=== PATIENT | female | born 1955 | race Caucasian/White ===

== ENCOUNTER 2022-04-10 06:29 | Day surgery (SDC) | payer MEDICARE ==
[2022-04-09 11:28] VITALS: BMI 23.0
[~2022-04-10 06:29] MED LIST: EPINEPHrine 0.3 MG in Ophthalmic Irrigation Solution 500 ML IRR SCH
[2022-04-10] MEDS ORDERED: Cyclopentolate 1% Opth Drop 2 ML BOT ONE (06:44)
[2022-04-10] MEDS ORDERED: Phenylephrine 2.5% Ophth Soln 5 ML BOT ONE (06:44)
[2022-04-10] MEDS ORDERED: Midazolam HCl 2 mg/2 ml Vial ONE (07:10)
[2022-04-10] MEDS ORDERED: Fentanyl 100 MCG/2 ML VIAL ONE (07:10)
[2022-04-10] MEDS ORDERED: Maxitrol 0.1% Opth Oint 3.5 GM TUBE ONE (08:41)
[2022-04-10] MEDS ORDERED: PROPOFOL 200 MG/20 ML VIAL ONE (08:41)
[2022-04-10] MEDS ORDERED: Bupivacaine 0.75% 10 ML VIAL ONE (08:41)
[2022-04-10] MEDS ORDERED: Lidocaine 4% PF 5 ML AMP ONE (08:41)
[2022-04-10] MEDS ORDERED: Triamcinolone 40 MG/ML VIAL ONE (08:41)
== END 2022-04-10 09:50 | disposition home or self-care (01) ==
LOC: SDC 06:29
PROVIDERS: ATTEND Ophthalmology Retina Specialist
PROC: 08T43ZZ Resection of Right Vitreous, Percutaneous Approach (ICD-10-PCS; principal; 2022-04-10)
DX: H43.11 Vitreous hemorrhage, right eye (principal); I10 Essential (primary) hypertension; E78.5 Hyperlipidemia, unspecified; I48.91 Unspecified atrial fibrillation; I69.398 Other sequelae of cerebral infarction; H54.62 Unqualified visual loss, left eye, normal vision right eye; E03.9 Hypothyroidism, unspecified; Z79.890 Hormone replacement therapy; Z79.899 Other long term (current) drug therapy; Z88.0 Allergy status to penicillin; Z88.1 Allergy status to other antibiotic agents; Z88.2 Allergy status to sulfonamides; Z91.041 Radiographic dye allergy status; Z98.41 Cataract extraction status, right eye; Z98.42 Cataract extraction status, left eye; Z96.1 Presence of intraocular lens
CPT/HCPCS: J0171; J1642; J2250; J2704; J3010; J3301; J3490

== ENCOUNTER 2024-11-17 05:41 | Day surgery (SDC) | payer MEDICARE ==
[2024-11-16 08:35] VITALS: BMI 25.3
[2024-11-17] MEDS ORDERED: Cyclopentolate 1% Opth Drop 2 ML BOT ONE (06:10)
[2024-11-17 07:03] LABS: Anion Gap 12 mmol/L (10-20); BUN (Urea Nitrogen) 16 mg/dL (9.8-20.1); Calc. Creatinine Clearance 56 mL/min (70-130); Calcium 8.5 mg/dL (7.8-10.44); Carbon Dioxide 23 mmol/L (23-31); Chloride 110 mmol/L (98-107); Glucose 82 mg/dL (80-115); Potassium 3.9 mmol/L (3.5-5.1); Sodium 141 mmol/L (136-145)
[2024-11-17 07:04] LABS: #Basophils 0.03 10x3/uL (0.0-0.2); #Eosinophils Less than 0.03 10x3/uL (0.0-0.7); #Monocytes 0.31 10x3/uL (0.11-0.59); #Neutrophils 1.73 10x3/uL (1.40-6.50); %Basophils 0.8 % (0.0-1.0); %Eosinophils 0.5 % (0.0-10.0); %Lymphocytes 45.3 % (21.0-51.0); %Monocytes 8.1 % (0.0-10.0); %Neutrophils 45.0 % (42.0-75.0); Hematocrit 29.0 % (36.0-47.0); Hemoglobin 9.2 g/dL (12.0-16.0); Mean Corpuscular Hemoglobin 31.8 pg (27.0-31.0); Mean Corpuscular Volume 100.3 fL (78.0-98.0); Platelet Count 129 10x3/uL (130-400); Red Blood Cell (RBC) Count 2.89 mill/uL (4.20-5.40); White Blood Cell (WBC) Count 3.84 10x3/uL (4.8-10.8)
[2024-11-17] MEDS ORDERED: PROPOFOL 20 ML ONE (07:24)
[2024-11-17] MEDS ORDERED: Famotidine/PF 20 mg/2ml Vial ONE (07:35)
[2024-11-17] MEDS ORDERED: PHENYLEPHRINE-NS 100 MCG/ML 10 ML SYRINGE ONE (07:37)
[2024-11-17] MEDS ORDERED: Maxitrol 0.1% Opth Oint 3.5 GM TUBE ONE (07:55)
[2024-11-17] MEDS ORDERED: Lidocaine 4% PF 5 ML AMP ONE (07:55)
[2024-11-17] MEDS ORDERED: Ondansetron PF 4 MG/2 ML Vial ONE (08:01)
== END 2024-11-17 10:36 | disposition home or self-care (01) ==
LOC: SDC 05:41
PROVIDERS: ATTEND Ophthalmology Retina Specialist
PROC: 08T43ZZ Resection of Right Vitreous, Percutaneous Approach (ICD-10-PCS; principal; 2024-11-17)
PROC: 08PJ3JZ Removal of Synthetic Substitute from Right Lens, Percutaneous Approach (ICD-10-PCS; 2024-11-17)
PROC: 08RJ3JZ Replacement of Right Lens with Synthetic Substitute, Percutaneous Approach (ICD-10-PCS; 2024-11-17)
DX: T85.22XA Displacement of intraocular lens, initial encounter (principal); Z87.59 Personal history of other complications of pregnancy, childbirth and the puerperium; Z96.1 Presence of intraocular lens; Z95.818 Presence of other cardiac implants and grafts; Z90.710 Acquired absence of both cervix and uterus; Z91.041 Radiographic dye allergy status; Z88.0 Allergy status to penicillin; Z88.1 Allergy status to other antibiotic agents; Z88.2 Allergy status to sulfonamides; Y83.1 Surgical operation with implant of artificial internal device as the cause of abnormal reaction of the patient, or of later complication, without mention of misadventure at the time of the procedure
CPT/HCPCS: 66986; 67036; 80048; 85025; J0166; J1308; J1642; J2250; J2405; J2704; J3010; 93005; 93010; J3301; J3490; V2632